=== PATIENT | male | born 1970 | race Caucasian/White ===

== ENCOUNTER 2016-09-04 13:11 | Emergency (ER) | payer MEDICAID ==
[2016-09-04 13:25] VITALS: BP 107/82
== END 2016-09-04 15:55 | disposition home or self-care (01) ==
LOC: ED 13:11
DX: M25.562 Pain in left knee (principal)
CPT/HCPCS: 82962; J7512

== ENCOUNTER 2016-12-03 00:16 | Emergency (ER) | payer SELFPAY ==
[2016-12-03 02:27] VITALS: BP 110/77
== END 2016-12-03 02:27 | disposition home or self-care (01) ==
LOC: ED 00:16
DX: S43.102A Unspecified dislocation of left acromioclavicular joint, initial encounter (principal); S00.03XA Contusion of scalp, initial encounter; F10.129 Alcohol abuse with intoxication, unspecified; R07.89 Other chest pain; W18.30XA Fall on same level, unspecified, initial encounter; Y93.89 Activity, other specified; Y99.8 Other external cause status; Y92.89 Other specified places as the place of occurrence of the external cause
CPT/HCPCS: J1885

== ENCOUNTER 2017-02-17 14:25 | Emergency (ER) | payer MEDICAID ==
[~2017-02-17] VITALS: Ht 177.8 cm; Wt 112.0 kg
[2017-02-17 17:17] VITALS: BP 110/64
== END 2017-02-17 17:17 | disposition home or self-care (01) ==
LOC: ED 14:25
DX: J02.0 Streptococcal pharyngitis (principal); M54.5 Low back pain; M25.561 Pain in right knee; M25.562 Pain in left knee
CPT/HCPCS: 87804; J0696